=== PATIENT | female | born 1950 | race Two or more races ===

== ENCOUNTER 2018-02-03 11:21 | Emergency (ER) | payer MEDICARE ==
[~2018-02-03] VITALS: Ht 154.9 cm; Wt 79.4 kg
[2018-02-03] MEDS ORDERED: LISINOPRIL-HCT1 EACH ORAL (11:30)
[2018-02-03] MEDS ORDERED: SYNTHROID125 MCG ORAL (11:30)
[2018-02-03] MEDS ORDERED: Isovue-300 100ml vial INJ PRN (11:45)
[2018-02-03] MEDS ORDERED: Ketorolac 30mg Inj IV ONE (11:45)
[2018-02-03 11:59] LABS: BASOPHILS % (AUTO) 0.6 % (0.0-2.0); EOSINOPHILS % (AUTO) 1.7 % (0.0-3.0); HEMATOCRIT 40.1 % (37.0-47.0); HEMOGLOBIN 12.8 G/DL (12.0-16.0); LYMPHOCYTES % (AUTO) 26.8 % (20.0-45.0); MEAN CORPUSCULAR VOLUME 83 FL (80-99); MONOCYTES % (AUTO) 4.9 % (1.0-10.0); NEUTROPHILS % (AUTO) 66.1 % (45.0-75.0); PLATELET COUNT 295 K/UL (150-450); RED BLOOD COUNT 4.85 M/UL (4.20-5.40); RED CELL DISTRIBUTION WIDTH 12.2 % (11.6-14.8); WHITE BLOOD COUNT 10.2 K/UL (4.8-10.8)
[2018-02-03 12:00] LABS: APPEARANCE,URINE CLEAR; BILIRUBIN, URINE NEGATIVE (NEGATIVE); COLOR,URINE PALE YELLOW; GLUCOSE, URINE (UA) NEGATIVE (NEGATIVE); KETONES,URINE NEGATIVE (NEGATIVE); LEUKOCYTE ESTERASE ,URINE 1+ (NEGATIVE); NITRITE,URINE NEGATIVE (NEGATIVE); PH,URINE 5 (4.5-8.0); PROTEIN,URINE NEGATIVE (NEGATIVE); UROBILINOGEN,URINE NORMAL MG/DL (0.0-1.0)
[2018-02-03 12:06] VITALS: BP 150/76
[2018-02-03 12:21] LABS: ALANINE AMINOTRANSFERASE 18 U/L (12-78); ALBUMIN 3.3 G/DL (3.4-5.0); ALBUMIN/GLOBULIN RATIO 0.7 (1.0-2.7); ALKALINE PHOSPHATASE 78 U/L (46-116); ANION GAP 6 mmol/L (5-15); ASPARTATE AMINO TRANSFERASE 14 U/L (15-37); BILIRUBIN,TOTAL 0.7 MG/DL (0.2-1.0); BLOOD UREA NITROGEN 9 mg/dL (7-18); CALCIUM 9.2 MG/DL (8.5-10.1); CARBON DIOXIDE 32 MMOL/L (21-32); CHLORIDE 100 MMOL/L (98-107); CREATININE 0.7 MG/DL (0.55-1.30); POTASSIUM 2.6 MMOL/L (3.5-5.1); SODIUM 139 MMOL/L (136-145)
--- NOTE | 2018-02-03 13:35 | Diagnostic Imaging Report ---
Clinical Indication: Abdominal pain Technique: No oral contrast utilized, per emergency room physician request IV administration nonionic contrast. Venous phase spiral acquisition obtained through the abdomen and pelvis. Multiplanar reconstructions were generated. Total dose length product 953.83 mGycm. CTDIvol(s) 18.16 mGy. Dose reduction achieved using automated exposure control Comparison: none Findings: There is colonic diverticulosis. There is stranding of the pericolonic fat as well as prominent small nodes adjacent to a large distal descending colon diverticulum. No extraluminal gas or fluid is demonstrated. The appendix is prominent in caliber but otherwise normal. No small bowel distention. No free or loculated intraperitoneal gas or fluid is evident. There is a small sliding-type hiatal hernia. Distal esophagus, stomach, duodenum are otherwise unremarkable. The liver demonstrates diffuse low attenuation, consistent with fatty change. No focal abnormality. The gallbladder, bile ducts, pancreas, spleen, adrenals, kidneys are unremarkable. There are prominent bilateral extrarenal pelvises. No renal or ureteral calculi, hydronephrosis, or hydroureter demonstrated. No pelvic mass or adenopathy. However, the endometrium is thickened, measuring up to 12 mm thick. No adnexal mass demonstrated. The bladder is unremarkable. There is a 3 mm nodule at the right lung base, image 8 of series 6. The highest cut may demonstrate a 4 mm nodule at the left lung base, although this could be just the edge of a vessel. The bones are unremarkable except for mild thoracic degenerative spondylosis changes and lumbar facet arthrosis Impression: Positive for uncomplicated acute distal descending colon diverticulitis 12 mm thick endometrium, abnormal for postmenopausal female. Ultrasound and possible gynecological consultation should be considered 3 mm nodule right lung base, possible 4 mm nodule left lung base. No further follow-up necessary if there is no significant smoking history or other risk factors for lung carcinoma. If there are significant risk factors, short interval follow-up CT at 6-12 months is recommended Incidental finding small sliding-type hiatal hernia Findings discussed by phone with Dr. Flores in the emergency room at the time of interpretation The CT scanner at [facility] is accredited by the [employer] and the scans are performed using protocols designed to limit radiation exposure to as low as reasonably achievable to attain images of sufficient resolution adequate for diagnostic evaluation.
[2018-02-03] MEDS ORDERED: Ciprofloxacin 500mg tab ORAL ONE (13:45)
[2018-02-03] MEDS ORDERED: metroNIDAZOLE 500mg tab ORAL ONE (13:45)
[2018-02-03] MEDS ORDERED: METRONIDAZOLE500 MG ORAL (13:55)
[2018-02-03] MEDS ORDERED: CIPROFLOXACIN500 M2 ORAL (13:55)
[2018-02-03] MEDS ORDERED: IBUPROFEN600 MG ORAL (13:55)
[2018-02-03 14:04] VITALS: BP 157/78
[2018-02-03 14:17] VITALS: BP 157/78
--- NOTE | 2018-02-06 07:53 | Emergency Room Report ---
History of Present Illness General Chief Complaint: Abdominal Pain Source: Patient Present Illness HPI 67-year-old female presents ED for evaluation. Complaining of abdominal pain 2 days. Left-sided. Sharp, 6 out of 10, nonradiating. Denies fevers or chills. Denies nausea or vomiting. Denies blood in stool. Notes history of prior diverticulosis. No other aggravating relieving factors. Denies any other associated symptoms Allergies: Coded Allergies: No Known Allergies (Unverified , 02/03/18) Patient History Past Medical History: other - diverticulosis Past Surgical History: other Pertinent Family History: none Social History: Denies: smoking, alcohol use, drug use Now: No Immunizations: UTD Reviewed Nursing Documentation: PMH: Agreed; PSxH: Agreed Nursing Documentation-PMH Past Medical History: No History, Except For Hx Cardiac Problems: No - Hyperthyroidism, received radiation tx. Hx Hypertension: Yes Hx Pacemaker: No Hx Asthma: No Hx COPD: No Hx Diabetes: No Hx Cancer: No Hx Gastrointestinal Problems: Yes - Diverticulosis Hx Dialysis: No History Of Psychiatric Problem: No Hx Neurological Problems: No Hx Cerebrovascular Accident: No Hx Seizures: No Review of Systems All Other Systems: negative except mentioned in HPI Physical Exam Vital Signs Date Time Temp Pulse Resp B/P (MAP) Pulse Ox O2 Delivery O2 Flow Rate FiO2 02/03/18 11:26 98.2 91 14 149/86 99 Room Air Sp02 EP Interpretation: reviewed, normal General Appearance: no apparent distress, alert, GCS 15, non-toxic Head: normocephalic, atraumatic Eyes: bilateral eye normal inspection, bilateral eye PERRL ENT: hearing grossly normal, normal pharynx, no angioedema, normal voice Neck: full range of motion, supple/symm/no masses Respiratory: chest non-tender, lungs clear, normal breath sounds, speaking full sentences Cardiovascular #1: regular rate, rhythm, no edema Cardiovascular #2: 2+ carotid (R), 2+ carotid (L), 2+ radial (R), 2+ radial (L) , 2+ dorsalis pedis (R), 2+ dorsalis pedis (L) Gastrointestinal: normal bowel sounds, soft, non-distended, no guarding, no rebound, tenderness - LLQ Rectal: deferred Genitourinary: normal inspection, no CVA tenderness Musculoskeletal: back normal, gait/station normal, normal range of motion, non- tender Neurologic: alert, oriented x3, responsive, motor strength/tone normal, sensory intact, speech normal Psychiatric: judgement/insight normal, memory normal, mood/affect normal, no suicidal/homicidal ideation Reflexes: 3+ bicep (R), 3+ bicep (L), 3+ tricep (R), 3+ tricep (L), 3+ knee (R) , 3+ knee (L) Skin: normal color, no rash, warm/dry, well hydrated Lymphatic: no adenopathy Medical Decision Making Diagnostic Impression: Primary Impression: Lung nodule Additional Impression: Diverticulitis ER Course Hospital Course 67-year-old F presents to ED with lower abdominal pain Differential diagnoses include: appendicitis, diverticulitis, SBO, gastroenteritis Clinical course Patient placed on stretcher. phototypesetting equipment monitor. After initial history and physical I ordered labs, IV fluids, UA, pain medication and CT scan Labs - no leukocytosis, Hb/Hct stable. electrolytes ok. CT abdomen and pelvis - diverticulitis, no abscess. Evidence of lung nodule in right and left lung Discussed findings with patient. We discussed the implications of a lung nodule. Concern for cancer especially if there is a family history or patient smokes. Patient denies a family history of cancer or smoking. Nevertheless we did discuss that the patient will follow-up with her PMD for further outpatient workup. We will provide her with copy of her CT results Patient has no leukocytosis, no fever, pain otherwise controlled. Patient can be safely discharged with antibiotics with close outpatient follow-up. Patient agrees to plan given cipro/flagyl in ED I feel this is a highly complex case requiring extensive working including EKG/ Rhythm strip, Xray/CT/US, Blood/urine lab work, repeat exams while in ED, and administration of strong opiates/narcotics for pain control, admission to hospital or close patient follow up. Diagnosis - divertculitis, lung nodule stable and discharged to home with prescription for Cipro and Flagyl. Followup with PMD. Return to ED if symptoms recur or worsen Labs Test 02/03/18 11:37 White Blood Count 10.2 K/UL (4.8-10.8) Red Blood Count 4.85 M/UL (4.20-5.40) Hemoglobin 12.8 G/DL (12.0-16.0) Hematocrit 40.1 % (37.0-47.0) Mean Corpuscular Volume 83 FL (80-99) Mean Corpuscular Hemoglobin 26.3 PG (27.0-31.0) Mean Corpuscular Hemoglobin Concent 31.8 G/DL (32.0-36.0) Red Cell Distribution Width 12.2 % (11.6-14.8) Platelet Count 295 K/UL (150-450) Mean Platelet Volume 7.4 FL (6.5-10.1) Neutrophils (%) (Auto) 66.1 % (45.0-75.0) Lymphocytes (%) (Auto) 26.8 % (20.0-45.0) Monocytes (%) (Auto) 4.9 % (1.0-10.0) Eosinophils (%) (Auto) 1.7 % (0.0-3.0) Basophils (%) (Auto) 0.6 % (0.0-2.0) Urine Color Pale yellow Urine Appearance Clear Urine pH 5 (4.5-8.0) Urine Specific [place] 1.010 (1.005-1.035) Urine Protein Negative (NEGATIVE) Urine Glucose (UA) Negative (NEGATIVE) Urine Ketones Negative (NEGATIVE) Urine Blood Negative (NEGATIVE) Urine Nitrite Negative (NEGATIVE) Urine Bilirubin Negative (NEGATIVE) Urine Urobilinogen Normal MG/DL (0.0-1.0) Urine Leukocyte Esterase 1+ (NEGATIVE) Urine RBC 0-2 /HPF (0 - 2) Urine WBC 0-2 /HPF (0 - 2) Urine Squamous Epithelial Cells Moderate /LPF (NONE/OCC) Urine Bacteria Few /HPF (NONE) Sodium Level 139 MMOL/L (136-145) Potassium Level 2.6 MMOL/L (3.5-5.1) Chloride Level 100 MMOL/L (98-107) Carbon Dioxide Level 32 MMOL/L (21-32) Anion Gap 6 mmol/L (5-15) Blood Urea Nitrogen 9 mg/dL (7-18) Creatinine 0.7 MG/DL (0.55-1.30) Estimat Glomerular Filtration Rate > 60 mL/min (>60) Glucose Level 143 MG/DL (74-106) Calcium Level 9.2 MG/DL (8.5-10.1) Total Bilirubin 0.7 MG/DL (0.2-1.0) Aspartate Amino Transf (AST/SGOT) 14 U/L (15-37) Alanine Aminotransferase (ALT/SGPT) 18 U/L (12-78) Alkaline Phosphatase 78 U/L (46-116) Total Protein 8.2 G/DL (6.4-8.2) Albumin 3.3 G/DL (3.4-5.0) Globulin 4.9 g/dL Albumin/Globulin Ratio 0.7 (1.0-2.7) Lipase 97 U/L (73-393) CT/MRI/US Diagnostic Results CT/MRI/US Diagnostic Results : Imaging Test Ordered: CT A/P Impression Positive for uncomplicated acute distal descending colon diverticulitis 12 mm thick endometrium, abnormal for postmenopausal female. Ultrasound and possible gynecological consultation should be considered 3 mm nodule right lung base, possible 4 mm nodule left lung base. No further follow-up necessary if there is no significant smoking history or other risk factors for lung carcinoma. If there are significant risk factors, short interval follow -up CT at 6-12 months is recommended Last Vital Signs Date Time Temp Pulse Resp B/P (MAP) Pulse Ox O2 Delivery O2 Flow Rate FiO2 02/03/18 14:17 98.2 94 14 157/78 99 Room Air Status: improved Disposition: HOME, SELF-CARE Condition: Stable Scripts Ibuprofen* (MOTRIN*) 600 Mg Tablet 600 MG ORAL Q8H PRN for For Pain, #30 TAB 0 Refills Prov: Rene Flores MD 02/03/18 Metronidazole* (FLAGYL*) 500 Mg Tablet 500 MG ORAL THREE TIMES A DAY, #21 TAB Prov: Rene Flores MD 02/03/18 Ciprofloxacin Hcl* (CIPROFLOXACIN HCL*) 500 Mg Tablet 500 MG ORAL Q12H, #14 TAB 0 Refills Prov: Rene Flores MD 02/03/18 Patient Instructions: Diverticulitis, [id number], Pulmonary Nodule, Easy-to- Read Rene Flores MD Feb 06, 2018 07:53
== END 2018-02-03 14:18 | disposition home or self-care (01) ==
LOC: EMR 12:21
DX: K57.90 Diverticulosis of intestine, part unspecified, without perforation or abscess without bleeding (principal); R91.1 Solitary pulmonary nodule; K57.32 Diverticulitis of large intestine without perforation or abscess without bleeding; N95.9 Unspecified menopausal and perimenopausal disorder; I10 Essential (primary) hypertension; E05.90 Thyrotoxicosis, unspecified without thyrotoxic crisis or storm; Z77.123 Contact with and (suspected) exposure to radon and other naturally occurring radiation
CPT/HCPCS: 36415; 74177; 80053; 81003; 83690; 85025; 96361; 96374; 99284; J1885; Q9967; J8499